=== PATIENT | female | born 1965 | race Caucasian/White ===

== ENCOUNTER 2020-04-02 10:04 | Observation (INO) | payer BC ==
--- NOTE | 2020-04-02 10:44 | EDPHYS ---
Physician Documentation [facility] Name: Nely Castro Age: 54 yrs Sex: Female : 1965 Arrival Date: 04/02/2020 Time: 10:10 Bed 13 Private MD: ED Physician Orlando Landry HPI: 04/02 10:39 This 54 yrs old Female presents to ER via Ambulatory with complaints of Chest snw Pain. 10:39 Onset: The symptoms/episode began/occurred gradually, 2 week(s) ago, and became snw persistent. Associated signs and symptoms: Pertinent positives: chest pain, shortness of breath, nausea. Modifying factors: The patient symptoms are alleviated by nothing, the patient symptoms are aggravated by activity. over the past two weeks. The patient has been recently seen by a physician: the patient's primary care provider, Dr. Irene, and Dr. Baxter. Plan to admit pt for more testing and chemical stress test per Dr. Baxter. 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 - Social history:: Smoking status: . ROS: 10:34 Eyes: Negative for injury, pain, redness, and discharge, ENT: Negative for injury, snw pain, and discharge. 10:34 : Negative for injury, bleeding, discharge, and swelling, MS/Extremity: Negative for injury and deformity, Skin: Negative for injury, rash, and discoloration, Neuro: Negative for headache, weakness, numbness, tingling, and seizure, Psych: Negative for depression, anxiety, suicide ideation, homicidal ideation, and hallucinations. 10:34 Constitutional: Positive for malaise. 10:34 Neck: Positive for sharp pain shooting up neck. 10:34 Cardiovascular: Positive for chest pain, palpitations, paroxysmal nocturnal dyspnea. 10:34 Respiratory: Positive for dyspnea on exertion, shortness of breath. 10:34 Abdomen/GI: Positive for nausea. 10:34 Back: Positive for radiated pain, radiates from left chest to above left scapula. Exam: 10:34 Constitutional: This is a well developed, well nourished patient who is awake, alert, snw and in no acute distress. Head/Face: Normocephalic, atraumatic. Eyes: Pupils equal round and reactive to light, extra-ocular motions intact. Lids and lashes normal. Conjunctiva and sclera are non-icteric and not injected. Cornea within normal limits. Periorbital areas with no swelling, redness, or edema. ENT: Nares patent. No nasal discharge, no septal abnormalities noted. Tympanic membranes are normal and external auditory canals are clear. Oropharynx with no redness, swelling, or masses, exudates, or evidence of obstruction, uvula midline. Mucous membranes moist. Respiratory: Lungs have equal breath sounds bilaterally, clear to auscultation and percussion. No rales, rhonchi or wheezes noted. No increased work of breathing, no retractions or nasal flaring. Back: No spinal tenderness. No costovertebral tenderness. Full range of motion. Skin: Warm, dry with normal turgor. Normal color with no rashes, no lesions, and no evidence of cellulitis. MS/ Extremity: Pulses equal, no cyanosis. Neurovascular intact. Full, normal range of motion. Neuro: Awake and alert, GCS 15, oriented to person, place, time, and situation. Cranial nerves II-XII grossly intact. Motor strength 5/5 in all extremities. Sensory grossly intact. Cerebellar exam normal. Normal gait. Psych: Awake, alert, with orientation to person, place and time. Behavior, mood, and affect are within normal limits. 10:34 Neck: Exam negative for 10:34 Chest/axilla: Palpation: tenderness, that is moderate, of the anterior aspect of left upper chest, that does not reproduce the patient's complaints, radiates through to back above left shoulder blade. 10:34 Cardiovascular: Rate: normal, Rhythm: regular, Pulses: no pulse deficits are appreciated, Heart sounds: normal, Edema: is not appreciated. 10:34 Respiratory: Exam negative for 10:34 Abdomen/GI: Exam negative for Vital Signs: 10:15 BP 132 / 73; Pulse 65; Resp 18; Pulse Ox 98% ; ah 10:17 BP 132 / 73; Pulse 69; Resp 18; Temp 97.8(TE); Pulse Ox 98% on R/A; Weight 98.43 kg tw2 (R); Height 5 ft. 8 in. (172.72 cm); Pain 5/10; 12:00 BP 125 / 74; Pulse 63; Resp 15; Pulse Ox 98% ; ah 13:00 BP 102 / 61; Pulse 57; Resp 16; Pulse Ox 100% ; ah 10:17 Body Mass Index 32.99 (98.43 kg, 172.72 cm) tw2 MDM: 10:20 Patient medically screened. snw 10:41 Data reviewed: vital signs, nurses notes. Data interpreted: Pulse oximetry: on room air snw is 98 %. Interpretation: normal. Counseling: I had a detailed discussion with the patient and/or guardian regarding: the historical points, exam findings, and any diagnostic results supporting the discharge/admit diagnosis, lab results, radiology results, the need for further work-up and treatment in the hospital. Physician consultation: Pasha Pack MD was called at 10:42, was contacted at 10:42, regarding admission, to the telemetry unit. 04/02 10:24 Order name: Basic Metabolic Panel; Complete Time: 11:27 snw 04/02 10:24 Order name: CBC with Diff; Complete Time: 11:02 snw 04/02 10:24 Order name: LFT's; Complete Time: 11:27 snw 04/02 10:24 Order name: Magnesium; Complete Time: 11:27 snw 04/02 10:24 Order name: NT PRO-BNP; Complete Time: 11:27 snw 04/02 10:24 Order name: PT-INR; Complete Time: 11:13 snw 04/02 10:24 Order name: Troponin (emerg Dept Use Only); Complete Time: 11:27 snw 04/02 10:24 Order name: XRAY Chest (1 view); Complete Time: 11:13 snw 04/02 10:24 Order name: EKG; Complete Time: 10:25 snw 04/02 10:24 Order name: Cardiac monitoring; Complete Time: 11:36 snw 04/02 10:24 Order name: EKG - Nurse/Tech; Complete Time: 10:46 snw 04/02 10:24 Order name: IV Saline Lock; Complete Time: 10:46 snw 04/02 10:24 Order name: Labs collected and sent; Complete Time: 10:46 snw 04/02 10:24 Order name: Carotid Artery Bilateral US; Complete Time: 11:13 snw 04/02 10:24 Order name: O2 Per Protocol; Complete Time: 10:46 snw 04/02 10:24 Order name: O2 Sat Monitoring; Complete Time: 10:46 snw EC:34 Rate is 66 beats/min. Rhythm is regular. QRS Opdyke is Normal. ND interval is normal. QRS snw interval is normal. QT interval is normal. No Q waves. T waves are Flattened in lead III. Clinical impression: NSR w/ Non-specific ST/T Changes. Administered Medications: No medications were administered Disposition: 04/03 13:34 Co-signature as Attending Physician, Orlando Landry MD I agree with the assessment and kdr plan of care. Disposition: 04/02/20 10:43 Hospitalization ordered by Pasha Pack for Inpatient Admission. Preliminary diagnosis is Unstable angina. - Bed requested for Telemetry/MedSurg (Inpatient). - Status is Inpatient Admission. iw - Condition is Stable. - Problem is an ongoing problem. - Symptoms have worsened. Signatures: Dispatcher [employer] EDMS Jacinda Vance Kevin, MD MD [facility] Jes Bob, MACHINE ADJUSTER HELPER-C MACHINE ADJUSTER HELPER-Csnw Justina Blunt, POOJA RN Rochelle Oneil RN RN tw2 Corrections: (The following items were deleted from the chart) 04/02 13:00 10:43 Hospitalization Ordered by Pasha Pack MD for Inpatient Admission. Preliminary bd diagnosis is Unstable angina. Bed requested for Telemetry/MedSurg (Inpatient). Status is Inpatient Admission. Condition is Stable. Problem is an ongoing problem. Symptoms have worsened. snw 14:23 13:00 04/02/2020 10:43 Hospitalization Ordered by Pasha Pack MD for Inpatient iw Admission. Preliminary diagnosis is Unstable angina. Bed requested for Telemetry/MedSurg (Inpatient). Status is Inpatient Admission. Condition is Stable. Problem is an ongoing problem. Symptoms have worsened. bd
--- NOTE | 2020-04-02 10:44 | ER ---
Nurse's Notes [facility] Name: Nely Castro Age: 54 yrs Sex: Female : 1965 Arrival Date: 04/02/2020 Time: 10:10 Bed 13 Private MD: Diagnosis: Unstable angina Presentation: 04/02 10:17 Chief complaint: Patient states: Dr. Irene was supposed to call up here, i have been tw2 having chest pains and sob for weeks now and was supposed to see Dr. Baxter today, but this morning it just got worse and the nauseousness has been going on for weeks too. Coronavirus screen: Patient denies a cough. Patient reports shortness of breath or difficulty breathing. Patient denies measured and/or subjective temperature greater than 100.4F prior to today's visit. Patient denies travel on a cruise ship or to a country the [facility] currently lists as an affected area. Patient denies contact with known and/or suspected case of COVID-19. Ebola Screen: Patient denies travel to an Ebola-affected area in the 21 days before illness onset. Initial Sepsis Screen: Does the patient meet any 2 criteria? No. Patient's initial sepsis screen is negative. Does the patient have a suspected source of infection? No. Patient's initial sepsis screen is negative. Risk Assessment: Do you want to hurt yourself or someone else? Patient reports no desire to harm self or others. Onset of symptoms was April 02, 2020. 10:17 Method Of Arrival: Ambulatory tw2 10:17 Acuity: VERÓNICA 3 tw2 Triage Assessment: 10:19 General: Appears uncomfortable, obese, well groomed, Behavior is calm, cooperative, tw2 appropriate for age. Pain: Complains of pain in chest. Cardiovascular: Reports chest pain, shortness of breath. GI: Reports nausea. 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 - Social history:: Smoking status: . Screenin:29 Abuse screen: Denies threats or abuse. Denies injuries from another. Nutritional iw screening: No deficits noted. Tuberculosis screening: No symptoms or risk factors identified. Fall Risk IV access (20 points). Assessment: 10:28 General: Appears in no apparent distress. comfortable, Behavior is calm, cooperative. iw Pain: Complains of pain in anterior aspect of left upper chest and left breast Pain does not radiate. Pain radiates to left arm Pain began gradually. Neuro: Level of Consciousness is awake, alert, obeys commands, Oriented to person, place, time, situation, Moves all extremities. Full function. Cardiovascular: Patient's skin is warm and dry. Cardiovascular: Reports chest pain, Rhythm is sinus rhythm. Respiratory: Respiratory effort is even, unlabored, Respiratory pattern is regular, symmetrical. GI: Abdomen is non-distended, Patient currently denies vomiting. Derm: Skin is intact, is healthy with good turgor. Musculoskeletal: Range of motion: intact in all extremities. 11:30 Reassessment: Patient is alert, oriented x 3, equal unlabored respirations, skin ah warm/dry/pink. awaiting on room assignment. No needs voiced atthis time. 12:30 Reassessment: Patient and/or family updated on plan of care and expected duration. Pain ah level reassessed. Patient is alert, oriented x 3, equal unlabored respirations, skin warm/dry/pink. Vital Signs: 10:15 BP 132 / 73; Pulse 65; Resp 18; Pulse Ox 98% ; ah 10:17 BP 132 / 73; Pulse 69; Resp 18; Temp 97.8(TE); Pulse Ox 98% on R/A; Weight 98.43 kg tw2 (R); Height 5 ft. 8 in. (172.72 cm); Pain 5/10; 12:00 BP 125 / 74; Pulse 63; Resp 15; Pulse Ox 98% ; ah 13:00 BP 102 / 61; Pulse 57; Resp 16; Pulse Ox 100% ; ah 10:17 Body Mass Index 32.99 (98.43 kg, 172.72 cm) tw2 ED Course: 10:10 Patient arrived in ED. fj1 10:13 Jes Bob FNP-C [facility]. snw 10:13 Orlando Landry MD is Attending Physician. snw 10:17 Bed in low position. Call light in reach. quality assurance monitor final on. Pulse ox on. NIBP on. tw2 10:18 Triage completed. tw2 10:19 Arm band placed on. tw2 10:21 Patient maintains SpO2 saturation greater than 95% on room air. tw2 10:26 Justina Blunt, RN is Primary Nurse. iw 10:42 Pasha Pack MD is Hospitalizing Provider. snw 10:45 Initial lab(s) drawn, by oh, sent to lab. Inserted saline lock: 20 gauge in left iw antecubital area, using aseptic technique. Blood collected. 10:56 Carotid Artery Bilateral US In Process Unspecified. EDMS 11:02 XRAY Chest (1 view) In Process Unspecified. EDMS 13:50 No provider procedures requiring assistance completed. Patient admitted, IV remains in ah place. Administered Medications: No medications were administered Outcome: 10:43 Decision to Hospitalize by Provider. snw 13:49 Admitted to Tele accompanied by [facility], via wheelchair, room 214, with chart, Report called to POOJA Wilkerson 13:49 Condition: stable 13:49 Instructed on the need for admit. 14:23 Patient left the ED. Signatures: Dispatcher [employer] EDDE Jes Bob FNP-C CALF SKINNER-Csnw uJstina Blunt, RN POOJA Rochelle Oneil RN RN 2 Caleb Sykes [facility] Julia Begum RN POOJA
[2020-04-02 10:57] LABS: Absolute Lymphocytes (CBC) 2.2 K/uL (0.7-4.9); Basophils % 1.2 % (0-1.3); Hematocrit 40.8 % (36.0-45.0); Lymphocytes % 37.5 % (15.3-44.8); MPV 8.9 fL (7.6-11.3); RBC Red Blood Cell Count 4.49 M/uL (3.86-4.86)
[2020-04-02 11:03] LABS: Protime INR 0.92
--- NOTE | 2020-04-02 11:07 | RAD REPORT ---
EXAM DESCRIPTION: USCarotid Artery Bilateral04/02/2020 10:56 am CLINICAL HISTORY: Neck pain COMPARISON: None FINDINGS: The velocity of the right internal carotid artery equals 124 cm/sec. The right ICA/CCA rat io 1.7 The velocity of the left internal carotid artery equals 105 cm/sec. The left ICA/CCA ratio 1. Plaque within the carotid arteries is not noted. The right internal carotid artery is tortuous The vertebral arteries demonstrate antegrade flow IMPRESSION: Tortuous right internal carotid artery. Otherwise unremarkable exam NASCET criteria used. Mild 0-49% stenosis Moderate 50-69% stenosis Severe 70-99% stenosis
--- NOTE | 2020-04-02 11:08 | RAD REPORT ---
EXAM DESCRIPTION: Rika Single View04/02/2020 11:01 am CLINICAL HISTORY: Chest pain COMPARISON: 2016 FINDINGS: The lungs appear clear of acute infiltrate. The heart is normal size IMPRESSION: No acute abnormalities displayed
[2020-04-02 11:25] LABS: ALT/SGPT 25 U/L (12-78); AST/SGOT 15 U/L (15-37); Albumin 3.7 g/dL (3.4-5.0); Alkaline Phosphatase 68 U/L (45-117); BUN Blood Urea Nitrogen 13 mg/dL (7-18); Bicarbonate 24 mmol/L (21-32); Bilirubin Direct < 0.1 mg/dL (0-0.2); Bilirubin Total 0.3 mg/dL (0.2-1.0); Glucose Level 81 mg/dL (74-106); Magnesium 2.4 mg/dL (1.8-2.4); NT PRO-BNP 80 pg/mL (<125); Potassium 4.1 mmol/L (3.5-5.1); Protein, Total 7.1 g/dL (6.4-8.2); Sodium Level 140 mmol/L (136-145); Troponin (Emerg Dept Use Only) < 0.02 ng/mL (0.0-0.045)
[2020-04-02] MEDS ORDERED: MORPHINE 2 MG/ML SYR IV PRN (13:22)
[2020-04-02] MEDS ORDERED: ACETAMINOPHEN 500 MG TAB PO PRN (13:22)
[2020-04-02] MEDS ORDERED: NITROGLYCERIN 0.4 MG/TAB SL PRN (13:22)
[2020-04-02 14:28] VITALS: BMI 33.0
[2020-04-02] MEDS ORDERED: clonazePAM 0.5 MG TAB PO PRN (14:50)
--- OUTSIDE RECORDS SUMMARY | 2020-04-02 14:57 | XMS REPORT | Continuity of Care Document ---
:[address] [facility] t Address [address] [place] [address] Care Team Providers Name Role Phone Harris Attending Clinician Unavailable ULYSSES Attending Clinician Unavailable Problems Condition Condition Condition Status Onset Resolution Last Treating Co mments Source Name Details Category Date Date Treatment Clinician Date Rectocele, Rectocele, Problem Active U nivers female female [facility] [place] [facility] ans Urethral Urethral Problem Active Unive rs hypermobil hypermobil it y of ity ity [place] [facility] Pelvic Pelvic Problem Active Univers pain in pain in ity of female female [place] [facility] ans Need for Need for Problem Active Unive rs prophylaxi prophylaxi [place] y [place] against [place] against [place] urinary urinary [place] tract tract ans infection infection Hematuria, Hematuria, Problem Active U nivers microscopi microscopi it y of c c [place] [facility] ans Dysuria Dysuria Problem Active [facility] [place] [facility] Smoking hx Smoking hx Problem Active U nivers [facility] [facility] [place] [facility] ans Atrophic Atrophic Problem Active Unive rs vaginitis vaginitis [facility] [facility] [place] [facility] ans Hepatomega Hepatomega Problem Active U nivers ly ly [facility] [place] [facility] ans Fatty Fatty Problem Active Univers liver liver [facility] [place] [facility] ans Allergies, Adverse Reactions, Alerts This patient has no known allergies or adverse reactions. Family History Family Member Diagnosis Comments Start Date Stop Date Source Mother Family history of [facility] [place] diabetes mellitus Physici ans Mother Family history of [facility] [place] hypertension Physicians Brother Family history of [facility] [place] malignant neoplasm of Phy sicians colon Social History Smoking Status Start Date Stop Date Source Current every day smoker Univers ity [facility] Physicians Medications Ordered Filled Start Stop Current Ordering Indication Dosage Frequency Signature Comments Components Source Medication Medication Date Date Medication? Clinician (SIG) Name Name buPROPion buPROPion 2019-0 Yes SOLAFA TAKE 1 Univers HCl ER (XL) HCl ER (XL) 5-28 [place] TABLET ity of 150 MG Oral 150 MG Oral 00:00: FY M.D. DAILY [place] Tablet Tablet 00 DIRECTED Physici Extended Extended ans Release 24 Release 24 Hour Hour Estradiol Estradiol Yes SOLAFA INSERT 1 Univers 0.1 MG/GM 0.1 MG/GM 03-21 [place] GRAM INTO ity of Vaginal Vaginal 00:00: M.D. THE VAGINA [place] Cream Cream 00 USING Physici APPLICATOR ans EVERY NIGHT AT BEDTIME FOR 2 WEEKS THEN DECREASE TO TWICE WEEKLY AT BEDTIME THEREAFTER PROzac 40 PROzac 40 Yes R.N. 1 PO QD Univers MG Oral MG Oral 3-15 ity of Capsule Capsule 00:00: [place] 00 Physici ans clonazePAM clonazePAM Yes R.N. Q0.5D TAKE 1 Univers 0.5 MG Oral 0.5 MG Oral 3-15 TABLET ity of Tablet Tablet 00:00: TWICE [place] 00 DAILY Physici NEEDED. ans Benadryl Benadryl Yes R.N. 2 TABS PO Univers Allergy 25 Allergy 25 3-15 QD PRN i ty of MG Oral MG Oral 00:00: [place] Capsule Capsule 00 Physici ans Vital Signs Vital Name Observation Time Observation Value Comments Source BP Systolic 2019-03-21 120 mm[Hg] Location: [facility] :08:00 Position: [place] Physician s Sitting BP Diastolic 2019-03-21 62 mm[Hg] Location: [facility] :08:00 Position: [place] Physician s Sitting Heart Rate 2019-03-21 63 /min [facility] :08:00 [place] Physician s Height 2019-03-21 68 [in_us] [facility] 13:08:00 [place] Physician s Weight 2019-03-21 224 [lb_av] [facility] :08:00 [place] Physician s Body Mass Index 2019-03-21 34.06 kg/m2 University o f Calculated :08: [place] Physician s Temperature 2019-03-21 98.7 [degF] Method: Oral [facility] 13:08: [place] Physician s BP Systolic 2019-01-20 118 mm[Hg] Location: [facility] :22:00 Position: [place] Physician s Sitting BP Diastolic 2019-01-20 81 mm[Hg] Location: LUE; [facility] 11:22:00 Position: [place] Physician s Sitting Height 2019-01-20 68 [in_us] University 11:22:00 [place] Physician s Weight 2019-01-20 224.5 [lb_av] University 11:22:00 [place] Physician s Body Mass Index 2019-01-20 34.14 kg/m2 University o f Calculated 11:22:00 [place] Physician s Temperature 2019-01-20 98.6 [degF] Method: Oral University 11:22:00 [place] Physician s Heart Rate 2019-01-20 66 /min University 11:22:00 [place] Physician s BP Systolic 2019-01-06 105 mm[Hg] Location: [facility] 10:57:00 Position: [place] Physician s Sitting BP Diastolic 2019-01-06 72 mm[Hg] Location: [facility] 10:57:00 Position: [place] Physician s Sitting Height 2019-01-06 68 [in_us] University 10:57:00 [place] Physician s Weight 2019-01-06 224 [lb_av] University 10:57:00 [place] Physician s Body Mass Index 2019-01-06 34.06 kg/m2 University o f Calculated 10:57:00 [place] Physician s Temperature 2019-01-06 98.3 [degF] Method: Oral [facility] 10:57:00 [place] [facility] s Heart Rate 2019-01-06 66 /min [facility] 10:57:00 [place] Physician s Procedures Procedure Date / Time Performing Clinician Source Performed [QLH] [facility] 2019-03-21 [facility] [Q] HEPATITIS PANEL, 2019-03-21 00:00:00 [facility] [place] ACUTE W/REFLEX Physicians CT Abdomen/Pelvis w/wo 2019-02-03 00:00:00 [facility]ive [facility] [place] contrast [id number] Physicians US Pelvis with Pelvis 2019-02-03 00:00:00 Univer sity [facility] Transvaginal [id number] Abdomen/Pelvis w/wo 2019-01-20 00:00:00 Unive rsity of [place] contrast [id number] Physicians US Pelvis with Pelvis 2019-01-06 00:00:00 Univer sity [facility] Transvaginal [id number] Physicians Encounters Start End Encounter Admission Attending Care Care Encounter Source Date/Time Date/Time Type Type Clinicians Facility Department ID 2019-03-21 2019-03-21 Appointrosemarie CAMP [facility] [id number] Univers 13:30:00 13:30:00 t; JOHNNY Andrade gy [facility] ERAN Rendon [facility] as Janiya CHANDLER ans M.D. 2019-01-20 2019-01-20 Appointrosemarie CAMP Gynecologic [id number] Univers 11:00:00 11:00:00 t; JOHNNY Andrade, Oncology at [facility] ERAN Rendon [facility] Janiya CHANDLER ans M.D. 2019-01-20 2019-01-20 Appointrosemarie CAMP [facility]ne[facility] [id number] Univers 11:00:00 11:00:00 t; JOHNNY Andrade gy [facility] ERAN Rendon [facility] as Janiya CHANDLER ans M.D. 2019-01-06 2019-01-06 Appointrosemarie CAMP Gynecologic [id number] Univers 10:30:00 10:30:00 t; JOHNNY Andrade, Oncology at [facility] ERAN Rendon [facility] Janiya CHANDLER ans M.D. Results Test Description Test Time Test Comments Results Result [facility] e Comments US PELVIC 2019-04-04 CLINICAL INDICATION: (TRANSVAGINAL 19:26:06 R10.2 Pelvic and ONLY) perineal painTECHNIQUE:Real-ti me and doppler transvaginal ultrasound evaluation of the pelvis was performed on the [employer].Comparison study: NoneFINDINGS:Both transabdominal and transvaginal scanning were performed.The uterus is not identified which is consistent with surgical history.The left ovary measures 2.2 x 1.6 x 1.0 cm for a volume of 1.74 ml. Small follicles are noted. The right ovary is not demonstrated.No free fluid or adnexal masses are noted.IMPRESSION:1. Uterus and right ovary not visualized.2. Unremarkable appearing left ovary. US PELVIC complete 2019-04-04 CLINICAL INDICATION: (TRANSABDOMINAL) 19:13:49 R10.2 Pelvic and perineal painTECHNIQUE:Real-ti me and doppler transabdominal ultrasound evaluation of the pelvis was performed on the [employer].FINDINGS:Both transabdominal and transvaginal scanning were performed.The uterus is not identified which is consistent with surgical history.The left ovary measures 2.2 x 1.6 x 1.0 cm for a volume of 1.74 ml. Small follicles are noted. The right ovary is not demonstrated.No free fluid or adnexal masses are noted.IMPRESSION:1. Uterus and right ovary not visualized.2. Unremarkable appearing left ovary. [Q] HEPATITIS PANEL, ACUTE W/REFLEX 2019-03-27 14:03:00 Test Item Value Reference Range Interpretation Comme nts HEPATITIS A IGM (test code = NON-REACTIVE NON-REACTIVE N HEPATITIS A IGM) HEPATITIS B SURFACE ANTIGEN; NON-REACTIVE NON-REACTIVE N Normal (test code = 5195-3) HEPATITIS B CORE ANTIBODY NON-REACTIVE NON-REACTIVE N (IGM); Normal (test code = 09047-2) HEPATITIS C ANTIBODY; Normal NON-REACTIVE NON-REACTIVE N (test code = 11540-5) SIGNAL TO CUT-OFF (test code 0.01 <1.00 N HCV antibody was = SIGNAL TO CUT-OFF) non-vicky ctive. There is no laboratory evid ence of HCV infection. In m ost cases, no further action is required. However,if rece nt HCV exposure is sahil pected, a test for HCV RNA(ray t code 95106) is suggested. F or additional information ple ase refer tohttp://educat ion.[employer]/faq/ JTG99i5(This link is being p rovided for informational/e ducational purposes only.) [facility]] HEPATIC FUNCTION [id number] 14:03:00 Test Item Value Reference Range Interpretation Comments PROTEIN, TOTAL (test code = 7.1 g/dl 6.1-8.1 N PROTEIN, TOTAL) ALBUMIN (test code = 4.3 g/dl 3.6-5.1 N ALBUMIN) GLOBULIN (test code = 2.8 {G/DL CALC} 1.9-3.7 N GLOBULIN) ALBUMIN/GLOBULIN RATIO (test 1.5 {CALC} 1.0-2.5 N code = ALBUMIN/GLOBULIN RATIO) BILIRUBIN, DIRECT; Normal 0.1 mg/dl < OR = 0.2 N (test code = 28770-9) BILIRUBIN, INDIRECT; Normal 0.3 {MG/DL MICKY} 0.2-1.2 N (test code = 1971-1) ALKALINE PHSPHATASE (test 77 u/l 33-130 N code = ALKALINE PHSPHATASE) AST; Normal (test code = 23 u/l 10-35 N 1916-6) ALT; Normal (test code = 26 u/l 6-29 N 1742-6) [facility][O] Urine Dipstick (In Office)2019-03-21 13:29:00 Test Item Value Reference Range Interpretation Comments Glucose (test code = Glucose) Negative N LEUKOCYTES (test code = LEUKOCYTES) Negative N NITRITE; Normal (test code = Negative N 47718-1) PROTEIN; Normal (test code = Negative N 43972-6) URINE BLOOD; Normal (test code = Negative N 81204-0) KETONES; Normal (test code = Negative N 13436-0) [facility][O] Urine Dipstick (In Office)2019-01-20 15:38:00 Test Item Value Reference Range Interpretation Comments Glucose (test code = Glucose) Negative N LEUKOCYTES (test code = Negative N LEUKOCYTES) NITRITE; Normal (test code = Negative N 97171-9) PROTEIN; Normal (test code = Negative N 51913-1) URINE BLOOD; Abnormal (test code Trace-Intact A = 12919-5) KETONES; Normal (test code = Negative N 24327-2) [facility]] URINALYSIS, [id number] 14:50:01 Test Item Value Reference Range Interpretation Comments UA Color (test code = 5778-6) Ltyellow UA Turbidity; Abnormal (test code Slight Clear A = 40909-1) UA Spec Grav (test code = 5810-7) 1.014 <=1.030 UA pH (test code = 5803-2) 6.0 5.0-8.0 UA Protein (test code = 22657-3) Negative Negative UA Glucose (test code = 96561-5) Negative Negative UA Ketones (test code = 65969-8) Negative Negative UA Bili (test code = 5770-3) Negative Negative UA Blood (test code = 5794-3) Negative Negative UROBILINOGEN (test code = 75081-8) <=1.0 0.1-1.0 UA Nitrite (test code = 5802-4) Negative Negative UA Leuk Est (test code = 5799-2) Negative Negative UA RBC; Above High Threshold (test 4 {/HPF} 0-2 code = 55706-4) UA WBC (test code = 71943-0) <1 0-5 UA Bacteria (test code = 92394-3) Occasional None Seen UA Mucus (test code = 8247-9) Few None Seen UA Sq Epi (test code = 82531-8) Few Few [facility]] CULTURE, URINE, [id number] 14:50:01 Test Item Value Reference Range Interpretation Comments FINAL REPORT (test code 10,000 - 50,000 = FINAL REPORT) CFU/mL Skin [facility]
[2020-04-02] MEDS: carvediloL 6.25 MG TAB PO SCH (20:17)
[2020-04-02] MEDS ORDERED: HOME MED 1 EA UNK (Fluoxetine Hcl [Prozac] 40 MG) PO SCH (21:00)
[2020-04-02] MEDS ORDERED: FLUOXETINE 20 MG CAP PO SCH (21:00)
--- NOTE | 2020-04-02 22:13 | HP ---
Date of Admission: 04/02/2020 Chief Complaint: Chest pain. Consultants: Dr. Baxter with Cardiology. Primary Care Physician: Dr. Dickey. History Of Present Illness: Patient is a 54-year-old female with past medical history of generalized anxiety disorder, depression, and hyperlipidemia found on recent lab work, not on any treatment, who comes in with chest pain. Patient was sent by primary care physician to the biological science technician's office yesterday for workup, however was unable to be done as patient is out of network. Therefore, patient was sent into the ER for worsening symptoms. Patient reports chest pain for the past 3 weeks, radiating to her left neck, associated with some fatigue and nausea. No significant shortness of breath, fever, chills. Patient does report some palpitations as well. Patient denies any orthopnea. In the ER, her vital signs were stable. She was afebrile. Her workup revealed negative cardiac enzymes. EKG showed normal sinus rhythm. White blood cell count was normal. Chest x-ray was clear. Carotid artery ultrasound showed tortuous right internal carotid artery, otherwise unremarkable. Patient was then referred for admission. When seen in the ER, she was awake, alert, oriented x3, in some mild distress. Past Medical History: Hyperlipidemia, recently diagnosed, not currently on treatment; generalized anxiety disorder, on chronic benzodiazepines; and major depressive disorder. Past Surgical History: Patient had hysterectomy, tubal ligation, and and anal cyst removal. Allergies: NO KNOWN DRUG ALLERGIES. Medications: Prozac 40 mg daily for the past 20 years, Klonopin 0.5 mg 1 tab twice a day. Social History: Patient smokes half pack per day, has been smoking since the age of 17. Denies any illicit drug use or alcohol use. Patient is independent in her activities of daily living. Family History: Patient denies any premature coronary artery disease in the family. Review of Systems: Ten-point system reviewed, negative except as per HPI. Physical Examination: Vital Signs: Blood pressure 132/73, heart rate 69, respirations 18, temperature 97.8, O2 98% on room air, BMI of 33. General: Awake, alert, oriented x3, in some mild distress. Obese female. HEENT: Normocephalic, atraumatic. PERRLA, EOMI. Moist mucous membranes. Oropharynx is clear. Conjunctivae anicteric. Normal dentition. Neck: Supple. No JVD. Trachea midline. CV: S1, S2. Regular rate and rhythm. Peripheral pulses present. Respiratory: Moving air well bilaterally. No wheezing or stridor. No use of accessory muscles. Gastrointestinal: Abdomen is soft, nontender, nondistended. Positive bowel sounds. No guarding or rigidity. Extremities: No clubbing, cyanosis, or edema. No calf tenderness. Neuro: Cranial nerves 2 through 12 intact grossly. No focal neurological deficits. Speech is normal. Strength is symmetric bilateral upper and lower extremities. Skin: No rashes. Normal skin turgor. Psych: Mood is okay. Affect is full. Insight and judgment are good. Laboratory Data: Sodium 140, potassium 4.1, chloride 109, CO2 of 24, BUN 13, creatinine 0.95, glucose 81, calcium 8.7, magnesium 2.4. Troponin less than 0.02. INR 0.92. WBC 6, H and H 13.9 and 40.8, platelets 362. Imaging Studies: Chest x-ray shows no acute cardiopulmonary process, personally reviewed. Carotid artery ultrasound shows tortuous right internal carotid artery, otherwise unremarkable. Assessment And Plan: 54-year-old female with 1. Chest pain. Start on chest pain guidelines, beta-jessica, aspirin, statin, CLARISSA inhibitor. Initial cardiac enzyme and EKG were negative. Appreciate Cardiology input. Case discussed with Dr. Baxter. We will obtain echocardiogram and Lexiscan in the morning. 2. Shortness of breath may be related to above versus possible atrial flutter or fibrillation. Patient will likely need event monitor. We will continue with cardiac telemetry. 3. Generalized anxiety disorder. We will continue with Klonopin as needed. 4. Major depressive disorder, in remission, single episode. Continue with SSRI. 5. Obesity, BMI 33, counseled. 6. Nicotine dependence with cigarette smoking, counseled not to smoke for 3 min. Nicotine patch as needed. 7. Deep venous thrombosis prophylaxis with Lovenox. Plan, admit patient to Med-Surg, place as observation. 8. Mixed hyperlipidemia. We will check lipid panel. We will start on statin. Patient has multiple risk factors including hyperlipidemia, cigarette smoking, obesity, rule out acute coronary syndrome. Discharge in a.m. if stress test is negative. /MODL Voice ID: [id number] MTDKatherine
[2020-04-03 03:29] LABS: Absolute Lymphocytes (CBC) 3.1 K/uL (0.7-4.9); Basophils % 0.8 % (0-1.3); Hematocrit 37.4 % (36.0-45.0); Lymphocytes % 48.9 % (15.3-44.8); MPV 8.4 fL (7.6-11.3); RBC Red Blood Cell Count 4.08 M/uL (3.86-4.86)
[2020-04-03 03:39] LABS: Potassium 4.2 mmol/L (3.5-5.1)
--- NOTE | 2020-04-03 06:55 | EKG ---
Test Date: 2020-04-02 Test Time: 10:20:02 Yeast Distiller: KACI MEASUREMENT RESULTS: Intervals: Rate: 66 KS: 158 QRSD: 78 QT: 402 QTc: 421 [place]: P: 54 KS: 158 QRS: 46 T: 46 INTERPRETIVE STATEMENTS: Normal sinus rhythm Normal ECG No previous ECG available for comparison Electronically Signed On 04-03-20 06:53:36 CDT by Joselito Baxter
[2020-04-03] MEDS: carvediloL 6.25 MG TAB PO SCH (07:55)
[2020-04-03] MEDS ORDERED: ENOXAPARIN 40 MG/0.4 ML SQ SCH (09:00)
[2020-04-03] MEDS ORDERED: lisinopriL 10 MG TAB PO SCH (09:00)
[2020-04-03] MEDS ORDERED: ASPIRIN EC 81 MG TAB PO SCH (09:00)
[2020-04-03] MEDS ORDERED: REGADENOSON 0.4 MG/5 ML SYR IV ONE (09:36)
--- NOTE | 2020-04-03 09:37 | CON ---
Date of Consultation: 04/03/2020 Reason For Consultation: Chest pain and palpitations. History Of Present Illness: Ms. Castro is a 54-year-old white woman with history of anxiety, depress ion, dyslipidemia. I saw her in the office on Wednesday last week, i.e., the 4 days ago with the same s ymptoms. I had ordered an event monitor, carotid Doppler, echocardiogram and a stress test on her. The tests were scheduled in the hospital, but were not done yet, but she came back to the emergency r oom on 04/02/2020 with chest pain and was admitted for further cardiac evaluation. Past Medical History: As stated above. Allergies: NONE. Review of Systems: Negative. Social History: Negative. Family History: Negative. Medications: At home include clonopin and Prozac. Physical Examination: Vital Signs: Stable, afebrile. HEENT: Negative. Neck: Supple, no bruit. Chest: Clear. Cardiac Exam: Revealed a regular rhythm and rate. No murmurs, gallops, or rubs. Abdomen: Benign. Extremities: Revealed no clubbing, cyanosis, or edema. Diagnostic Data: So far included negative chest x-ray negative EKG, negative carotid, normal labs. Impression And Plan: Atypical chest pain with normal EKG and normal troponin. Has had palpitations, but nothing had shown up on telemetry yet. She has an echocardiogram and Lexiscan are pending for t isabel. We will see what it shows before making final decisions. RAYSHAWN/HORACIO Voice ID: [id number] Report ID: [id number]
--- NOTE | 2020-04-03 13:40 | RAD REPORT ---
EXAM DESCRIPTION: NM - Rest Stress Cardiac Imaging - 04/03/2020 1:03 pm CLINICAL HISTORY: Chest pain COMPARISON: Cardiac stress study September 2017 TECHNIQUE: The patient was administered approximately 10 mCi of Tc 99m Sestamibi prior to resting SP ECT imaging of the heart. The patient was then administered approximately 30 mCi of Tc 99m Sestamibi following exercise or pharmacologic stress. Multiplanar SPECT images were reviewed. FINDINGS: The end diastolic volume is 78 ml, the end systolic volume is 27 ml, and the ejection frac tion is 66 %. Ventricular volumes and ejection fraction are similar to the 2017 study. No stress-induced ischemic changes identifiable. Diminished activity along the inferior wall does not change between rest and stress imaging. This is believed to be mostly affects of diaphragm. Minimal scarring is possible. The pattern is similar to 2017. IMPRESSION: No stress-induced ischemia. Decreased activity along the inferior wall is probably diaphragm artifact. Imaging is similar to the 2017 study. Ventricular volumes and ejection fraction are normal range and very similar to 2017.
--- NOTE | 2020-04-03 17:18 | RAD REPORT ---
EXAM DESCRIPTION: US - Lower Extremity Artery [facility] - 04/03/2020 4:51 pm CLINICAL HISTORY: lower left extremity pain Pain in the left lower extremity. COMPARISON: No comparisons FINDINGS: Doppler interrogation of the left lower extremity arterial system was performed. Triphasic waveforms are seen throughout the left lower extremity arterial system. There is no evidenc e of a significant stenosis or occlusion. IMPRESSION: No significant left lower extremity arterial peripheral vascular disease.
[2020-04-03 17:25] VITALS: O2SAT 100
[2020-04-03 17:39] VITALS: BP 115/53; TEMP 96.9
--- NOTE | 2020-04-04 01:50 | DS ---
Date of Discharge: 04/03/2020 Consultants: Dr. Baxter with Cardiology. Procedures: Cardiac stress test on 04/03/2020 showed no stress-induced ischemia. Discharge Diagnoses: 1.Chest pain, acute coronary syndrome ruled out. 2.Shortness of breath, resolved. 3.Generalized anxiety disorder, on chronic benzodiazepines. 4.Mixed hyperlipidemia, uncontrolled. Patient unable to tolerate statin. 5.Major depressive disorder, in remission, single episode. Continue with SSRI. 6.Nicotine dependence cigarette smoking, counseled. 7.Obesity, BMI of 33. Hospital Course: Patient is a 54-year-old female with past medical history of generalized anxiety di sorder, depression, and recent diagnosis of hyperlipidemia, not currently on any treatment. She was unable to tolerate Lipitor in the past due to myopathy, comes in with chest pain and shortness of lali ath. Patient was admitted to the hospital for further evaluation. ACS was ruled out. Cardiac enzym es were negative. Cardiac stress test was obtained, which did not show any stress-induced ischemia w ith results similar to 2017 study. Her lipid panel showed elevated triglycerides, elevated total cho lesterol, elevated total LDL and low HDL. She was counseled regarding diet and exercise modification . She declined therapy with statins as she has tried Lipitor in the past with a side effect of myopa thy. She will need to follow up with her primary care physician in the next month or so, have her la bs repeated and to be initiated on statin therapy with a different agent and lower dose, if diet and exercise modification do not work. Patient symptoms improved. She was then cleared for discharge fr om Cardiology standpoint. She also did report some pain on the back of her left knee, found to have a Wren's cyst. Ultrasound Doppler sonogram was done to rule out any DVT. Results pending at this t cinda. Patient to follow up with her PCP regarding the cyst. Medications: As per medication reconciliation list. Diet: Heart healthy. Activity: As tolerated. Followup: Follow up with primary care physician in 2-3 days. Follow up with telecom field technician, Dr. Dian warner in 2 weeks. Return to ER for worsening condition. Patient likely need to be set up with Holter m onitor study. Physical Examination: General: Awake, alert, oriented x3, obese female, no acute distress. CV: S1, S2. Respiratory: Moving air well bilaterally. Abdomen: Abdomen is soft, nontender, nondistended. Positive bowel sounds. Extremities: No clubbing, cyanosis, or edema. Musculoskeletal: Patient has Wren cyst on the left knee. Neurologic: Nonfocal. SA/MODL Voice ID: [id number] Report ID: [id number]
--- NOTE | 2020-04-04 08:45 | TREADPHA ---
DX: CHEST PAIN Date of Study: 04/03/2020 Ht: 5' 8 " Wt: 217 lb 0 oz Consulting Physician: HANSEL MEDICATIONS: PROZAC, KLONIPIN, LOVENOX, COREG, ASPIRIN, PRINIVIL. HISTORY: 54 YEAR OLD FEMALE WITH HISTORY OF DEPRESSION, ANXIETY, AND HYPERLIPIDEMIA, SMOKER. ADMITTED FOR CHEST PAIN PHYSICIAL EXAMINATION: RESTING B.P.: 145/74 RESTING H.R.: 53 RESTING EKG: NORMAL. PROTOCOL: LEXISCAN EXERCISE TIME: 3:30 B.P. AT PEAK STRESS: 131/66 IMPRESSION: LEXISCAN STRESS TEST PERFORMED. CARDIOLITE INJECTED PER PROTOCOL. NO SUPRA VENTRICULAR TACHYCARDIA, NO VENTRICULAR TACHYCARDIA, NO ARRHYTHMIA NOTED. PATIENT DENIED CHEST PAIN. RESPIRATORY EVEN NONLABORED. SEE NUCLEAR MEDICINE REPORT.
--- NOTE | 2020-04-04 08:57 | ECHO ---
HEIGHT: 5 ft 8 in WEIGHT: 217 lb 0 oz DATE OF STUDY: 04/03/[address]: Pasha Pack MD 2-DIMENSIONAL: YES M.MODE: YES DOPPLER: YES COLOR FLOW: YES TDS: PORTABLE: DEFINITY: BUBBLE STUDY: DIAGNOSIS: CHEST PAIN CARDIAC HISTORY: CATHERIZATION: NO SURGERY: NO PROSTHETIC VALVE: NO PACEMAKER: NO MEASUREMENTS (cm) DIASTOLIC (NORMALS) SYSTOLIC (NORMALS) IVSd 0.9 (0.6-1.2) LA Diam 3.6 (1.9-4.0) LVEF 76% LVIDd 4.6 (3.5-5.7) LVIDs 2.6 (2.0-3.5) %FS 44% LVPWd 0.8 (0.6-1.2) Ao Diam 2.8 (2.0-3.7) 2 DIMENSIONAL ASSESSMENT: RIGHT ATRIUM: NORMAL LEFT ATRIUM: NORMAL RIGHT VENTRICLE: NORMAL LEFT VENTRICLE: NORMAL TRICUSPID VALVE: NORMAL MITRAL VALVE: NORMAL PULMONIC VALVE: NORMAL AORTIC VALVE: NORMAL PERICARDIAL EFFUSION: NONE AORTIC ROOT: NORMAL LEFT VENTRICULAR WALL MOTION: NORMAL DOPPLER/COLOR FLOW: COMMENTS: NORMAL 2-DIMENSIONAL ECHOCARDIOGRAM WITH DOPPLER. NO MITRAL VALVE PROLAPSE. NO EFFUSION. TECHNOLOGIST: SABRINA HARRIS
== END 2020-04-03 18:10 | disposition home or self-care (01) ==
LOC: ER 10:04 → ERHOLD 11:39 → 2ND 14:10
PROVIDERS: ADMIT Family Medicine; ATTEND Family Medicine
DX: R07.89 Other chest pain (principal); R06.02 Shortness of breath; R11.0 Nausea; Z20.828 Contact with and (suspected) exposure to other viral communicable diseases; F41.1 Generalized anxiety disorder; F32.5 Major depressive disorder, single episode, in full remission; E66.9 Obesity, unspecified; Z68.33 Body mass index [BMI] 33.0-33.9, adult; E78.2 Mixed hyperlipidemia; M71.22 Synovial cyst of popliteal space [Baker], left knee; F17.210 Nicotine dependence, cigarettes, uncomplicated; Z79.899 Other long term (current) drug therapy
CPT/HCPCS: 93005; 93017; 93306; 85025 ×2; 80048 ×2; 36415; 83735; 85610; 80061; 80076; 84484 ×3; 83880; 71045; 93880; 93926; 94760 ×3; 78452; 99285; U0002; J2785; A9500; G0378 ×3; J1650

== ENCOUNTER 2021-07-12 10:55 | Emergency (ER) | payer BC ==
[2021-07-12 12:04] LABS: Absolute Lymphocytes (CBC) 1.8 K/uL (0.7-4.9); Basophils % 0.4 % (0-1.3); Hematocrit 46.3 % (36.0-45.0); Lymphocytes % 21.1 % (15.3-44.8); MPV 8.7 fL (7.6-11.3); RBC Red Blood Cell Count 5.22 M/uL (3.86-4.86)
[2021-07-12 12:08] LABS: Protime INR 0.91
--- NOTE | 2021-07-12 12:13 | RAD REPORT ---
EXAM DESCRIPTION: RAD - Chest Single View - 07/12/2021 11:45 am CLINICAL HISTORY: COUGH COMPARISON: March 07 TECHNIQUE: AP portable chest image was obtained 07/12/2021 11:45 am . FINDINGS: Lung volumes are low. Focal airspace opacification mid right lung field is most likely pne umonia. Interstitial pattern is prominent and there are additional scattered alveolar opacities in ade th lung reyna. Heart and vasculature are normal. No measurable pleural effusion and no pneumothorax. No acute bony abnormality seen. No acute aortic findings suspected. IMPRESSION: Focal right midlung field pneumonia with additional pneumonia findings scattered in each lung field. COVID-19 pneumonia would be a primary consideration in the current clinical environment.
[2021-07-12 12:28] LABS: ALT/SGPT 43 U/L (12-78); AST/SGOT 34 U/L (15-37); Albumin 3.7 g/dL (3.4-5.0); Alkaline Phosphatase 83 U/L (45-117); BUN Blood Urea Nitrogen 16 mg/dL (7-18); Bicarbonate 23 mmol/L (21-32); Bilirubin Direct 0.1 mg/dL (0-0.2); Bilirubin Total 0.3 mg/dL (0.2-1.0); Glucose Level 104 mg/dL (74-106); Lipase 113 U/L (73-393); Potassium 4.3 mmol/L (3.5-5.1); Protein, Total 7.7 g/dL (6.4-8.2); Sodium Level 135 mmol/L (136-145); Troponin (Emerg Dept Use Only) < 0.02 ng/mL (0.0-0.045)
--- NOTE | 2021-07-12 13:25 | RAD REPORT ---
EXAM DESCRIPTION: CT - Chest For Pe Angio - 07/12/2021 12:55 pm CLINICAL HISTORY: COUGH COMPARISON: No comparisons TECHNIQUE: Dynamically enhanced 3 mm thick images of the chest were obtained during administration o f approximately 150mL Isovue 370 IV contrast. Coronal and oblique MIP reconstruction images were gene rated and reviewed. Exam utilizes a protocol to evaluate the pulmonary arterial tree. All CT scans are performed using dose optimization technique as appropriate and may include automated exposure control or mA/KV adjustment according to patient size. FINDINGS: No pulmonary emboli are identified. The aorta as imaged shows no acute or suspicious finding. No pericardial thickening or effusion. Scattered ground-glass opacities are present in the lung reyna with interstitial thickening. This is a well described COVID-19 pneumonia pattern. No mass or cavitation. No pleural effusion or pleural t hickening. Small nonspecific mediastinal lymph nodes are present. Small hilar reactive type lymph nodes also see n. No chest wall masses or abnormal axillary lymphadenopathy. No pericardial thickening or effusion IMPRESSION: No pulmonary emboli identified. Mild bilateral COVID-19 pneumonia pattern.
[2021-07-12 14:13] LABS: Urine Blood Negative (Negative); Urine Glucose Negative (Negative); Urine Protein Negative (Negative)
[2021-07-12] MEDS ORDERED: NA CHLORIDE 0.9% 500 ML ONE (15:18)
[2021-07-12] MEDS ORDERED: FENTANYL CITR 100 MCG/2 ML ONE (15:18)
[2021-07-12] MEDS ORDERED: CASIRIVIMAB/IMDEVIMAB 10 ML VIAL ONE (15:24)
[2021-07-12] MEDS ORDERED: NA CHLORIDE 0.9% 250 ML ONE (15:24)
[2021-07-12 16:17] LABS: Urine Bacteria <20 /HPF (<20); Urine RBC <5 /HPF (NONE SEEN)
[2021-07-12] MEDS ORDERED: MORPHINE 4 MG/ML SYR ONE (16:38)
--- NOTE | 2021-07-12 16:57 | ER ---
Nurse's Notes [facility] Name: Nely Castro Age: 55 yrs Sex: Female : 1965 Arrival Date: 07/12/2021 Time: 10:56 Bed 7 Private MD: Patrick Irene R Diagnosis: Weakness;SARS-associated coronavirus as the cause of diseases classified elsewhere;Pneumonia due to SARS-associated coronavirus Presentation: 07/12 11:01 Chief complaint: Patient states: Tested COVID-19 positive last Wednesday and c/o aa5 generalized weakness and decreased appetite. 11:01 Coronavirus screen: Client presents with at least one sign or symptom that may indicate aa5 coronavirus-19. Ebola Screen: Patient negative for fever greater than or equal to 101.5 degrees Fahrenheit, and additional compatible Ebola Virus Disease symptoms. Onset of symptoms was June 2021. 11:01 Method Of Arrival: Wheelchair aa5 11:01 Acuity: VERÓNICA 3 aa5 11:01 Initial Sepsis Screen: Does the patient meet any 2 criteria? No. Patient's initial aa5 sepsis screen is negative. Does the patient have a suspected source of infection? No. Patient's initial sepsis screen is negative. Risk Assessment: Do you want to hurt yourself or someone else? Patient reports no desire to harm self or others. 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 - Social history:: Smoking status: Patient reports the use of cigarette tobacco products, smokes one-half pack cigarettes per day. Screenin:09 Abuse screen: Denies threats or abuse. Nutritional screening: No deficits noted. jd3 Tuberculosis screening: No symptoms or risk factors identified. Fall Risk Ambulatory Aid- None/Bed Rest/Nurse Assist (0 pts). Gait- Normal/Bed Rest/Wheelchair (0 pts) Mental Status- Oriented to own ability (0 pts). Total Taylor Fall Scale indicates No Risk (0-24 pts). Assessment: 11:07 General: Appears in no apparent distress. uncomfortable, Behavior is calm, cooperative, jd3 appropriate for age, Reports chills for >3 days, fever for > 3 days, fatigue for >3 days. Pain: Complains of pain in head, right arm, left arm, right leg and left leg Quality of pain is described as aching. Neuro: Level of Consciousness is awake, alert, obeys commands, Oriented to person, place, time, situation. Cardiovascular: Denies chest pain, Heart tones S1 S2 present Capillary refill < 3 seconds Patient's skin is warm and dry. Respiratory: Reports shortness of breath on exertion Airway is patent Respiratory effort is even, unlabored, Respiratory pattern is regular, symmetrical, Breath sounds are clear bilaterally. GI: No signs and/or symptoms were reported involving the gastrointestinal system. : No signs and/or symptoms were reported regarding the genitourinary system. EENT: No signs and/or symptoms were reported regarding the EENT system. Derm: Skin is intact, Skin is dry, Skin is normal, Skin temperature is warm. 12:54 Reassessment: Patient appears in no apparent distress at this time. No changes from jd3 previously documented assessment. Patient and/or family updated on plan of care and expected duration. Pain level reassessed. Patient is alert, oriented x 3, equal unlabored respirations, skin warm/dry/pink. 14:07 Reassessment: Patient appears in no apparent distress at this time. No changes from jd3 previously documented assessment. Patient and/or family updated on plan of care and expected duration. Pain level reassessed. Patient is alert, oriented x 3, equal unlabored respirations, skin warm/dry/pink. 15:05 Reassessment: Patient appears in no apparent distress at this time. No changes from jd3 previously documented assessment. Patient and/or family updated on plan of care and expected duration. Pain level reassessed. Patient is alert, oriented x 3, equal unlabored respirations, skin warm/dry/pink. awaiting REGEN-COV infusion. 16:06 Reassessment: Patient appears in no apparent distress at this time. Patient and/or jd3 family updated on plan of care and expected duration. Pain level reassessed. Patient is alert, oriented x 3, equal unlabored respirations, skin warm/dry/pink. REGEN-COV infusing, pt denies any discomfort at this time. pt reports relief from some pain with the Fentanyl. 16:40 Reassessment: Patient and/or family updated on plan of care and expected duration. Pain jd3 level reassessed. Patient is alert, oriented x 3, equal unlabored respirations, skin warm/dry/pink. REGEN-COV infusion finished. pt resting in bed comfortably. family at bedside. awaiting disposition and monitor time post infusion Patient states feeling better. 17:50 Reassessment: Patient appears in no apparent distress at this time. Patient and/or jd3 family updated on plan of care and expected duration. Pain level reassessed. Patient is alert, oriented x 3, equal unlabored respirations, skin warm/dry/pink. reported understanding of discharge instructions. assisted pt to vehicle with family via wheelchair. Patient states feeling better. Vital Signs: 11:01 BP 108 / 72; Pulse 72; Resp 18 S; Temp 98.1(TE); Pulse Ox 96% on R/A; Weight 95.25 kg aa5 (R); Height 5 ft. 8 in. (172.72 cm) (R); 12:54 BP 121 / 72; Pulse 85; Resp 19 S; Pulse Ox 97% on R/A; jd3 14:07 BP 99 / 65; Pulse 80; Resp 19 S; Pulse Ox 97% on R/A; jd3 15:05 BP 101 / 59; Pulse 75; Resp 18 S; Pulse Ox 99% on R/A; jd3 16:07 BP 116 / 67; Pulse 83; Resp 18 S; Pulse Ox 99% on R/A; jd3 17:50 BP 109 / 64; Pulse 85; Resp 17 S; Pulse Ox 96% on R/A; jd3 11:01 Body Mass Index 31.93 (95.25 kg, 172.72 cm) aa ED Course: 10:56 Patient arrived in ED. as 10:56 Patrick Irene MD is Private Physician. as 11:01 Arm band placed on. aa5 11:02 Orlando Landry MD is Attending Physician. kdr 11:05 Triage completed. aa5 11:07 Willard Campbell, POOJA is Primary Nurse. jd3 11:10 Patient has correct armband on for positive identification. Bed in low position. Call jd3 light in reach. Side rails up X 1. Pulse ox on. NIBP on. 11:25 ED physician to see patient. jd3 11:42 Inserted saline lock: 20 gauge in right antecubital area, using aseptic technique. jd3 Blood collected. 11:45 CXR XRAY In Process Unspecified. EDMS 12:55 CT Chest For PE Angio In Process Unspecified. EDMS 16:54 Patrick Irene MD is Referral Physician. kdr 17:51 No provider procedures requiring assistance completed. IV discontinued, intact, jd3 bleeding controlled, No redness/swelling at site. Pressure dressing applied. Administered Medications: 14:56 Drug: fentaNYL (PF) 25 mcg Route: IVP; Site: right antecubital; jd3 15:50 Follow up: Response: No adverse reaction; RASS: Alert and Calm (0) jd3 14:56 Drug: NS 0.9% 500 ml Route: IV; Rate: bolus; Site: right antecubital; jd3 17:52 Follow up: Response: No adverse reaction; IV Status: Completed infusion jd3 15:32 Drug: REGEN-COV Dose Pack 120 mg/mL-120 mg/mL (EUA) 600 mg Route: IV; Rate: calculated jd3 rate; Site: right antecubital; 16:40 Follow up: Response: No adverse reaction; IV Status: Completed infusion jd3 16:20 Drug: morphine 4 mg Route: IVP; Site: right antecubital; jd3 17:20 Follow up: Response: No adverse reaction; RASS: Alert and Calm (0) jd3 Outcome: 16:56 Discharge ordered by MD. kdr 17:51 Discharged to home via wheelchair, with family. jd3 17:51 Condition: stable 17:51 Discharge instructions given to patient, family, Instructed on discharge instructions, follow up and referral plans. medication usage, Demonstrated understanding of instructions, follow-up care, medications. 17:52 Patient left the ED. jd3 Signatures: Dispatcher [employer] EDMS Orlando Landry MD MD kdr Kathy Badillo Audri, RN RN aa5 Willard Campbell RN RN jd3 Corrections: (The following items were deleted from the chart) 15:10 15:05 Reassessment: Patient appears in no apparent distress at this time. No changes jd3 from previously documented assessment. Patient and/or family updated on plan of care and expected duration. Pain level reassessed. Patient is alert, oriented x 3, equal unlabored respirations, skin warm/dry/pink. jd3
--- NOTE | 2021-07-12 16:57 | EDPHYS ---
Physician Documentation [facility] Name: Nely Castro Age: 55 yrs Sex: Female : 1965 Arrival Date: 07/12/2021 Time: 10:56 Bed 7 Private MD: Patrick Irene R ED Physician Orlando Landry HPI: 07/12 17:52 This 55 yrs old Female presents to ER via Wheelchair with complaints of kdr Weakness - covid+. 17:52 Patient started to have symptoms of Covid a week ago Wednesday. On Wednesday she was tested kdr and found to be positive. Since then she continued to have upper respiratory symptoms including cough and congestion. She denies significant fever. She has had generalized myalgias and arthralgias and shortness of breath. Onset: The symptoms/episode began/occurred gradually, last week. Severity of symptoms: At their worst the symptoms were mild in the emergency department the symptoms are unchanged. The patient has not experienced similar symptoms in the past. The patient has been recently seen by a physician:. 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 - Social history:: Smoking status: Patient reports the use of cigarette tobacco products, smokes one-half pack cigarettes per day. ROS: 17:52 Constitutional: Negative for fever, chills, and weight loss, Eyes: Negative for injury, kdr pain, redness, and discharge, Neck: Negative for injury, pain, and swelling, Cardiovascular: Negative for chest pain, palpitations, and edema, Abdomen/GI: Negative for abdominal pain, nausea, vomiting, diarrhea, and constipation, Back: Negative for injury and pain, : Negative for injury, bleeding, discharge, and swelling, MS/Extremity: Negative for injury and deformity, Skin: Negative for injury, rash, and discoloration, Neuro: Negative for headache, weakness, numbness, tingling, and seizure activity. Psych: Negative for depression, anxiety, suicide ideation, homicidal ideation, and hallucinations, Allergy/Immunology: Negative for hives, rash, and allergies, Endocrine: Negative for neck swelling, polydipsia, polyuria, polyphagia, and marked weight changes, Hematologic/Lymphatic: Negative for swollen nodes, abnormal bleeding, and unusual bruising. 17:52 Respiratory: Positive for cough, shortness of breath, at rest. 17:52 Neuro: Positive for headache, Generalized myalgias. Exam: 17:52 Constitutional: This is a well developed, well nourished patient who is awake, alert, kdr and in no acute distress. Head/Face: Normocephalic, atraumatic. Eyes: Pupils equal round and reactive to light, extra-ocular motions intact. Lids and lashes normal. Conjunctiva and sclera are non-icteric and not injected. Cornea within normal limits. Periorbital areas with no swelling, redness, or edema. Neck: Trachea midline, no thyromegaly or masses palpated, and no cervical lymphadenopathy. Supple, full range of motion without nuchal rigidity, or vertebral point tenderness. No Meningismus. Chest/axilla: Normal chest wall appearance and motion. Nontender with no deformity. No lesions are appreciated. Cardiovascular: Regular rate and rhythm with a normal S1 and S2. No gallops, murmurs, or rubs. Normal PMI, no JVD. No pulse deficits. Abdomen/GI: Soft, non-tender, with normal bowel sounds. No distension or tympany. No guarding or rebound. No evidence of tenderness throughout. Back: No spinal tenderness. No costovertebral tenderness. Full range of motion. Skin: Warm, dry with normal turgor. Normal color with no rashes, no lesions, and no evidence of cellulitis. MS/ Extremity: Pulses equal, no cyanosis. Neurovascular intact. Full, normal range of motion. Neuro: Awake and alert, GCS 15, oriented to person, place, time, and situation. Cranial nerves II-XII grossly intact. Motor strength 5/5 in all extremities. Sensory grossly intact. Cerebellar exam normal. Normal gait. Psych: Awake, alert, with orientation to person, place and time. Behavior, mood, and affect are within normal limits. 17:52 Respiratory: the patient does not display signs of respiratory distress, Respirations: normal, Breath sounds: rales, that are mild, are scattered. Vital Signs: 11:01 BP 108 / 72; Pulse 72; Resp 18 S; Temp 98.1(TE); Pulse Ox 96% on R/A; Weight 95.25 kg aa5 (R); Height 5 ft. 8 in. (172.72 cm) (R); 12:54 BP 121 / 72; Pulse 85; Resp 19 S; Pulse Ox 97% on R/A; jd3 14:07 BP 99 / 65; Pulse 80; Resp 19 S; Pulse Ox 97% on R/A; jd3 15:05 BP 101 / 59; Pulse 75; Resp 18 S; Pulse Ox 99% on R/A; jd3 16:07 BP 116 / 67; Pulse 83; Resp 18 S; Pulse Ox 99% on R/A; jd3 17:50 BP 109 / 64; Pulse 85; Resp 17 S; Pulse Ox 96% on R/A; jd3 11:01 Body Mass Index 31.93 (95.25 kg, 172.72 cm) aa5 MDM: 16:56 Patient medically screened. kdr 17:52 Data reviewed: vital signs, nurses notes, lab test result(s), radiologic studies. kdr Counseling: I had a detailed discussion with the patient and/or guardian regarding: the historical points, exam findings, and any diagnostic results supporting the discharge/admit diagnosis, lab results, radiology results, the need for outpatient follow up. ED course: Patient was a candidate for and agreed to receive Regeneron. She tolerated the infusion well. She was discharged in good condition. She was happy with the care provided and the plan for discharge and follow-up. 07/12 11:03 Order name: BMP kdr 07/12 11:03 Order name: Blood Culture Adult (2) kdr 07/12 11:03 Order name: C-Reactive Protein kdr 07/12 11:03 Order name: CBC with Diff kdr 07/12 11:03 Order name: D-Dimer kdr 07/12 11:03 Order name: Ferritin kdr 07/12 11:03 Order name: Flu kdr 07/12 11:03 Order name: LFT's; Complete Time: 14:04 kdr 07/12 11:03 Order name: Lactate; Complete Time: 14:04 kdr 07/12 11:03 Order name: Lipase; Complete Time: 14:04 kdr 07/12 11:03 Order name: PT-INR; Complete Time: 12:19 kdr 07/12 11:03 Order name: Procalcitonin; Complete Time: 14:04 [facility] 07/12 11:03 Order name: Ptt, Activated; Complete Time: 12:19 [facility] 07/12 11:03 Order name: Strep; Complete Time: 12:19 [facility] 07/12 11:03 Order name: Troponin (emerg Dept Use Only); Complete Time: 14:04 [facility] 07/12 11:03 Order name: Urine Microscopic Only; Complete Time: 16:57 [facility] 07/12 11:03 Order name: CXR XRAY; Complete Time: 12:19 [facility] 07/12 11:03 Order name: Basic Metabolic Panel; Complete Time: 14:04 [facility] 07/12 11:03 Order name: Blood Culture [facility] 07/12 11:03 Order name: C-Reactive Protein; Complete Time: 14:04 [facility] 07/12 11:03 Order name: CBC with Automated Diff; Complete Time: 12:19 [facility] 07/12 11:03 Order name: D-Dimer; Complete Time: 12:19 [facility] 07/12 11:03 Order name: Ferritin; Complete Time: 14:04 [facility] 07/12 11:03 Order name: Influenza Screen (A ; Complete Time: 14:04 [facility] 07/12 12:17 Order name: Throat Culture [facility] 07/12 12:19 Order name: CT Chest For PE Angio; Complete Time: 14:04 [facility] 07/12 14:13 Order name: Urine Dipstick-Ancillary; Complete Time: 14:39 [facility] 07/12 11:03 Order name: EKG; Complete Time: 11:03 [facility] 07/12 11:03 Order name: Cardiac monitoring; Complete Time: 11:25 [facility] 07/12 11:03 Order name: Droplet/Contact Precautions; Complete Time: 11:14 [facility] 07/12 11:03 Order name: EKG - Nurse/Tech; Complete Time: 11:25 [facility] 07/12 11:03 Order name: IV Start; Complete Time: 12:29 [facility] 07/12 11:03 Order name: Labs collected and sent; Complete Time: 12:29 [facility] 07/12 11:03 Order name: O2 Per Protocol; Complete Time: 11:14 [facility] 07/12 11:03 Order name: O2 Sat Monitoring; Complete Time: 11:14 [facility] 07/12 11:03 Order name: Urine Dipstick-Ancillary (obtain specimen); Complete Time: 14:57 kdr Administered Medications: 14:56 Drug: fentaNYL (PF) 25 mcg Route: IVP; Site: right antecubital; jd3 15:50 Follow up: Response: No adverse reaction; RASS: Alert and Calm (0) jd3 14:56 Drug: NS 0.9% 500 ml Route: IV; Rate: bolus; Site: right antecubital; jd3 17:52 Follow up: Response: No adverse reaction; IV Status: Completed infusion jd3 15:32 Drug: REGEN-COV Dose Pack 120 mg/mL-120 mg/mL (EUA) 600 mg Route: IV; Rate: calculated jd3 rate; Site: right antecubital; 16:40 Follow up: Response: No adverse reaction; IV Status: Completed infusion jd3 16:20 Drug: morphine 4 mg Route: IVP; Site: right antecubital; jd3 17:20 Follow up: Response: No adverse reaction; RASS: Alert and Calm (0) jd3 Disposition Summary: 07/12/21 16:56 Discharge Ordered Location: Home kdr Problem: new kdr Symptoms: have improved kdr Condition: Stable kdr Diagnosis - Weakness kdr - SARS-associated coronavirus as the cause of diseases classified elsewhere kdr - Pneumonia due to SARS-associated coronavirus kdr Followup: kdr - With: Patrick Irene MD - When: 2 - 3 days - Reason: If symptoms return, Further diagnostic work-up, Recheck today's complaints, Continuance of care, Re-evaluation by your physician Discharge Instructions: - Discharge Summary Sheet kdr - Weakness, [id number] kdr - COVID-19 kdr - 10 Things You Can Do to Manage Your COVID-19 Symptoms at Home - [facility] kdr - COVID-19: Quarantine vs. Isolation - [facility] kdr - Prevent the Spread of COVID-19 if You Are Sick - [facility] kdr Forms: - Medication Reconciliation Form kdr - Thank You Letter kdr Prescriptions: - Prednisone 20 mg Oral Tablet - take 1 tablet by ORAL route once daily for 5 days; 5 tablet; Refills: 0, kdr Product Selection Permitted Signatures: Dispatcher [employer] Orlando Lackey MD MD kdr Angélica Monterroso RN RN aa5 Willard Campbell RN RN jd3 Corrections: (The following items were deleted from the chart) 11:15 11:03 Whitney ordered. kdr jd3
[2021-07-12 18:48] VITALS: TEMP 98.1
[2021-07-12 18:54] VITALS: BP 109/64; O2SAT 96
== END 2021-07-12 17:52 | disposition home or self-care (01) ==
LOC: ER 10:55
DX: U07.1 COVID-19 (principal); J12.82 Pneumonia due to coronavirus disease 2019; F17.210 Nicotine dependence, cigarettes, uncomplicated
CPT/HCPCS: 96365; 96361; 93005; 87040 ×2; 87070; 85025; 80048; 36415; 85610; 85379; 80076; 87081; 83605; 85730; 84484; 82728; 83690; 84145; 86140; 87804 ×2; 71275; 71045; 96375; 99284; Q9967; J3010; J7050; J7040; 81003; 81015